=== PATIENT | female | born 2000 | race Caucasian/White ===

== ENCOUNTER → 2022-03-27 | Outpatient (CLI) | payer BC ==
[~2022-03-27] MED LIST: Veetids 500500 MG PO
== END | disposition home or self-care (01) ==
LOC: LAB SHORT 08:00 → LAB 08:00
DX: Z32.01 Encounter for pregnancy test, result positive (principal); N91.2 Amenorrhea, unspecified
CPT/HCPCS: 84702; 84703

== ENCOUNTER 2022-10-24 15:15 | Inpatient (IN) | payer OTHER ==
[~2022-10-24] VITALS: Ht 167.6 cm; Wt 63.1 kg
[2022-10-24 15:21] VITALS: BP 139/75
[2022-10-24 15:42] VITALS: BP 118/71
[2022-10-24 15:52] VITALS: BP 118/70
[2022-10-24] MEDS ORDERED: PRENATAL TABLE1 EAC2 PO (18:40)
[2022-10-24 18:54] LABS: BASOPHILS ABSOLUTE AUTO 0.02 K/mm3 (0.00-0.23); BASOPHILS PERCENT AUTO 0 % (0-2); EOSINOPHILS ABSOLUTE AUTO 0.04 K/mm3 (0.00-0.68); EOSINOPHILS PERCENT AUTO 0 % (0-6); Hematocrit 38.2 % (33.0-51.0); Hemoglobin 13.4 g/dL (11.5-16.0); IMMATURE GRAN ABSOLUTE AUTO 0.03 K/mm3 (0.00-0.10); IMMATURE GRAN PERCENT AUTO 0 % (0-1); LYMPHOCYTES ABSOLUTE AUTO 2.42 K/mm3 (0.84-5.20); LYMPHOCYTES PERCENT AUTO 22 % (21-46); MONOCYTES PERCENT AUTO 5 % (4-13); Mean Corpuscular HGB 30.1 pg (26.0-34.0); Mean Corpuscular HGB Conc 35.1 g/dL (31.5-36.5); Mean Corpuscular Volume 86 fL (80-100); Mean Platelet Volume 9.4 fL (9.1-12.4); NEUTROPHILS ABSOLUTE AUTO 7.92 K/mm3 (1.96-9.15); NEUTROPHILS PERCENT AUTO 72 % (41-73); Platelet Count 244 K/mm3 (150-400); RDW Coefficient Variation 12.8 % (11.7-14.2); RDW Standard Deviation 39.9 fL (35.1-46.3); Red Blood Cell Count 4.45 M/mm3 (3.80-5.20); White Blood Cell Count 11.03 K/mm3 (4.00-11.30)
[2022-10-24 21:01] VITALS: BP 126/85
[2022-10-25 00:22] VITALS: BP 154/73
[2022-10-25 07:32] VITALS: BP 141/87
--- NOTE | 2022-10-25 08:45 | NUR ---
told were c/s at 1000, wiped with cholorhexidine wipes, clipped, has pas on, has iv fluids running with extention tubing, in hospital gown, pt removed her piercing, but not able to get nose ring out, taped and pt signed not able to remove piercing consent.
--- NOTE | 2022-10-25 09:15 | NUR ---
change of plans to transport pt to [place] based on heart rate tracing for last 3 hours and 15 minutes. pt is agreeable to plan to be transported adn aware of the risks to herself or baby.
[2022-10-25 09:20] VITALS: BP 141/87
[2022-10-25 09:25] VITALS: BP 146/85
--- NOTE | 2022-10-25 09:54 | NUR ---
off [facility], ambulance here for transport to [facility]. report called to paul hunt rn. pt going to room 3951.
== END 2022-10-25 09:58 | disposition short-term general hospital (02) | DRG 832 ==
LOC: OBS 15:15 → BC 15:15 → OBS 17:20 → BC 17:21
PROVIDERS: ADMIT Advanced Practice Midwife
DX: O36.5930 Maternal care for other known or suspected poor fetal growth, third trimester, not applicable or unspecified (principal); O10.913 Unspecified pre-existing hypertension complicating pregnancy, third trimester; O99.323 Drug use complicating pregnancy, third trimester; O76 Abnormality in fetal heart rate and rhythm complicating labor and delivery; F12.10 Cannabis abuse, uncomplicated; Z3A.34 34 weeks gestation of pregnancy
CPT/HCPCS: 76819; 85025; 86850; 86900; 86901; J0690; J2405; J7120

== ENCOUNTER → 2023-11-30 | Outpatient (CLI) | payer OTHER ==
[~2023-11-30] MED LIST changes: +PRENATAL TABLE1 EAC2 PO
== END ==
LOC: LAB SHORT 14:42 → LAB 14:42
DX: L03.811 Cellulitis of head [any part, except face] (principal)
CPT/HCPCS: 87070; 87205

== ENCOUNTER → 2024-03-20 | Outpatient (CLI) | payer OTHER ==
[2024-03-20 13:26] LABS: BASOPHILS ABSOLUTE AUTO 0.02 K/mm3 (0.00-0.23); BASOPHILS PERCENT AUTO 0 % (0-2); EOSINOPHILS ABSOLUTE AUTO 0.04 K/mm3 (0.00-0.68); EOSINOPHILS PERCENT AUTO 1 % (0-6); Hematocrit 42.9 % (33.0-51.0); Hemoglobin 14.6 g/dL (11.5-16.0); IMMATURE GRAN ABSOLUTE AUTO 0.01 K/mm3 (0.00-0.10); IMMATURE GRAN PERCENT AUTO 0 % (0-1); LYMPHOCYTES ABSOLUTE AUTO 1.76 K/mm3 (0.84-5.20); LYMPHOCYTES PERCENT AUTO 29 % (21-46); MONOCYTES ABSOLUTE AUTO 0.42 K/mm3 (0.16-1.47); MONOCYTES PERCENT AUTO 7 % (4-13); Mean Corpuscular HGB 28.7 pg (26.0-34.0); Mean Corpuscular Volume 84 fL (80-100); Mean Platelet Volume 8.4 fL (9.1-12.4); NEUTROPHILS ABSOLUTE AUTO 3.82 K/mm3 (1.96-9.15); NEUTROPHILS PERCENT AUTO 63 % (41-73); Platelet Count 277 K/mm3 (150-400); RDW Coefficient Variation 12.5 % (11.7-14.2); RDW Standard Deviation 38.1 fL (35.1-46.3); Red Blood Cell Count 5.09 M/mm3 (3.80-5.20); White Blood Cell Count 6.07 K/mm3 (4.00-11.30)
[2024-03-20 13:44] LABS: Albumin, Blood 4.5 g/dL (3.4-5.0); Albumin/Globulin Ratio 1.3 (0.8-1.8); Bilirubin, Total 0.7 mg/dL (0.1-1.0); Bun/Creatinine Ratio 10.3 (12.0-20.0); Calcium, Blood 9.3 mg/dL (8.5-10.1); Creatinine, Blood 0.78 mg/dL (0.40-1.00); Globulin, Blood 3.5 g/dL (2.2-4.0); Thyroid Stimulating Hormone 2.638 uIU/mL (0.360-4.800)
[2024-03-20 15:14] LABS: Percent Saturation 33.3 % (15.0-50.0)
== END ==
LOC: LAB 13:22 → LAB SHORT 13:22
PROVIDERS: Chiropractor
DX: R35.0 Frequency of micturition (principal); R53.83 Other fatigue
CPT/HCPCS: 80053; 82728; 83036; 83540; 83550; 84443; 85025